=== PATIENT | female | born 1965 ===

== ENCOUNTER 2020-05-25 21:46 | Inpatient (IN) ==
[2020-05-26 01:04] LABS: ABG Base Excess 1.6 MMOL/L (-2.5-2.5); ABG HCO3 25.8 MMOL/L (20-26); ABG Oxygen Saturation 95.5 % (95-100); ABG PCO2 31.1 MM HG (35-48); ABG PH 7.498 (7.35-7.45); ABG PO2 84.2 MM HG (80-95); ABG TCO2 21.4 MMOL/L (23-27)
[2020-05-26] MEDS ORDERED: NICOTINE 21 MG/24 HR PATCH TRANSDERM PRN ×2 (01:04→11:55)
[2020-05-26] MEDS ORDERED: AZITHROMYCIN INJ 500 MG in SODIUM CHLORIDE 0.9% 250 ML IV ONE ×2 (01:07→21:00)
[2020-05-26 01:15] LABS: Albumin 2.4 G/DL (3.4-5.0); Bilirubin,Total 0.4 MG/DL (0.2-1.0); Calcium 8.6 MG/DL (8.5-10.1); Osmolality,Calculated 282.4 MOS/KG (273-304); Potassium 3.3 MMOL/L (3.5-5.1)
[2020-05-26] MEDS ORDERED: cefTRIAXone 1,000 MG in SYRINGE 1 EACH IV SCH (01:15)
[2020-05-26] MEDS ORDERED: FUROSEMIDE 40 MG/4 ML VIAL IV ONE (01:16)
[2020-05-26 01:18] LABS: Basophils % 0.2 % (0.0-0.8); Hematocrit 33.3 VOL% (35.7-47.0); Hemoglobin 11.1 GM/DL (12.0-16.0); Immature Granulocytes % 2.3 %; Immature Granulocytes Absolute 0.37 #; Lymphocytes # 0.5 10*3/uL (1.4-4.0); Lymphocytes % 2.8 % (21.3-54.2); Mean Corpuscular HGB Conc 33.3 GM/DL (32-36); Mean Corpuscular Volume 91.5 FL (87-102); Mean Platelet Volume 9.5 FL (9.6-12.0); Monocytes % 1.9 % (1.7-12.7); Neutrophils % 92.8 % (38.7-73.9); Platelet Count 346 T/CUMM (130-400); Red Blood Count 3.64 MC/CUMM (3.8-5.5); Red Cell Distribution Width 15.2 % (9.3-17.3); White Blood Count 16.3 T/CUMM (4-12)
[2020-05-26] MEDS ORDERED: POTASSIUM CHLORIDE 20 MEQ TABLET PO PRN (01:29)
[2020-05-26] MEDS ORDERED: ENOXAPARIN 40 MG/0.4 ML SYRINGE SUBCUT SCH (01:30)
[2020-05-26 01:41] LABS: Ferritin 206.2 ng/ml (8-252)
[2020-05-26 03:05] LABS: Lymphocytes 8 % (20-55); Segmented Neutrophils 90 % (50-85); Total Cells Counted 100
[2020-05-26 03:06] LABS: Platelet Estimate Decreased
[2020-05-26] MEDS: ALBUTEROL INHALER 18 GM INH SCH ×7 (03:11→23:43)
[2020-05-26 03:14] LABS: Bilirubin,Urine Negative (Negative); Blood, Urine Negative (Negative); Glucose,Urine (UA) Negative (Negative); Ketones,Urine 5 mg/dL (Negative); Mucus,Urine Occasional /LPF (Occasional); Nitrite,Urine Positive (Negative); Protein,Urine Negative; RBC,Urine 1 /HPF (0-4); Squamous Epithelial Cell,Urine Occasional /HPF (0-10); Urine Appearance CLEAR (Clear); Urine Color Yellow (Yellow); Urine Specific Gravity 1.041 (1.001-1.035); Urine Urobilinogen < 2.0 EU/DL (0.2-1.0); WBC,Urine 50 /HPF (0-6)
[2020-05-26 03:19] LABS: Free T4 (Free Thyroxine) 1.07 NG/DL (0.76-1.46)
[2020-05-26] MEDS ORDERED: IBUPROFEN 400 MG TABLET PO PRN (03:29)
[2020-05-26] MEDS: ENOXAPARIN 60 MG/0.6 ML SYRINGE SUBCUT SCH (03:40)
[2020-05-26] MEDS ORDERED: LORazepam 2 MG/1 ML VIAL IV ONE ×2 (05:20→11:50)
[2020-05-26 05:54] LABS: Basophils % 0.3 % (0.0-0.8); Hematocrit 34.1 VOL% (35.7-47.0); Hemoglobin 11.2 GM/DL (12.0-16.0); Immature Granulocytes % 1.1 %; Immature Granulocytes Absolute 0.17 #; Lymphocytes # 0.5 10*3/uL (1.4-4.0); Lymphocytes % 3.4 % (21.3-54.2); Mean Corpuscular HGB Conc 32.8 GM/DL (32-36); Mean Corpuscular Volume 92.2 FL (87-102); Mean Platelet Volume 9.3 FL (9.6-12.0); Monocytes % 3.6 % (1.7-12.7); Neutrophils % 91.6 % (38.7-73.9); Platelet Count 348 T/CUMM (130-400); Red Cell Distribution Width 15.2 % (9.3-17.3); White Blood Count 15.7 T/CUMM (4-12)
[2020-05-26 06:19] LABS: Hypochromasia 1+; Lymphocytes 10 % (20-55); Microcytosis 1+; Platelet Estimate Adequate; Segmented Neutrophils 87 % (50-85); Total Cells Counted 100
[2020-05-26 06:22] LABS: Alanine Aminotransferase 13 U/L (13-56); Albumin 2.4 G/DL (3.4-5.0); Alkaline Phosphatase 93 U/L (45-117); Aspartate Amino Transferase 21 U/L (0-37); Bilirubin,Total < 0.39 MG/DL (0.2-1.0); Blood Urea Nitrogen 16 MG/DL (7-18); Calcium 8.4 MG/DL (8.5-10.1); Carbon Dioxide 24 MMOL/L (21-32); Estimated Glom Filtration Rate 78 ML/MIN; Glucose 157 MG/DL (74-106); Potassium 3.4 MMOL/L (3.5-5.1); Sodium 143 MMOL/L (136-145); Total Protein 7.3 G/DL (6.4-8.3)
[2020-05-26] MEDS ORDERED: HALOPERIDOL 5 MG/ML AMP IM PRN ×2 (08:45→15:55)
[2020-05-26] MEDS ORDERED: DEXAMETHASONE 4 MG/1 ML VIAL IV SCH (09:00)
[2020-05-26] MEDS ORDERED: AZITHROMYCIN INJ 500 MG in SODIUM CHLORIDE 0.9% 250 ML IV SCH (09:00)
[2020-05-26 09:08] LABS: ABG Base Excess 2.6 MMOL/L (-2.5-2.5); ABG HCO3 24.3 MMOL/L (20-26); ABG Oxygen Saturation 98.3 % (95-100); ABG PCO2 28.4 MM HG (35-48); ABG PO2 139.4 MM HG (80-95); ABG TCO2 25.2 MMOL/L (23-27); Pt O2 Delivery Device Other
[2020-05-26] MEDS: DOXYCYCLINE HYCLATE INJ 100 MG in SODIUM CHLORIDE 0.9% 100 ML IV SCH ×2 (09:15→23:55)
[2020-05-26] MEDS: PANTOPRAZOLE 40 MG TABLET PO SCH (09:16)
[2020-05-26] MEDS: ASCORBIC ACID 500 MG TABLET PO SCH ×2 (09:16→21:01)
[2020-05-26] MEDS: CHOLECALCIFEROL 1,000 UNIT TABLET PO SCH (09:16)
[2020-05-26] MEDS: ZINC GLUCONATE 50 MG TABLET PO SCH (09:16)
[2020-05-26] MEDS ORDERED: MORPHINE 4 MG/1 ML VIAL IV ONE (10:35)
[2020-05-26] MEDS ORDERED: ALPRAZolam 0.25 MG TABLET PO PRN (10:35)
[2020-05-26] MEDS ORDERED: MORPHINE 4 MG/1 ML VIAL ONE (10:38)
[2020-05-26 11:52] LABS: Ferritin 196.3 ng/ml (8-252)
[2020-05-26] MEDS ORDERED: LORazepam 2 MG/1 ML VIAL ONE ×2 (11:52→15:31)
[2020-05-26] MEDS ORDERED: METHOTREXATE 2.5 MG TABLET PO SCH (12:00)
[2020-05-26] MEDS ORDERED: DEXMEDETOMIDINE 200 MCG in SODIUM CHLORIDE 0.9% 48 ML IV PRN (12:13)
[2020-05-26] MEDS: FOLIC ACID 1 MG TABLET PO SCH (12:19)
[2020-05-26] MEDS: methylPREDNISolone SOD SUC 40 MG/1 ML VIAL IV SCH ×2 (12:19→21:00)
[2020-05-26] MEDS: LEVOTHYROXINE 50 MCG TABLET PO SCH (12:19)
[2020-05-26] MEDS ORDERED: LORazepam 2 MG/1 ML VIAL IV PRN (13:00)
[2020-05-26] MEDS: ZINC OXIDE PASTE 113 GM TUBE TOP SCH ×2 (13:51→21:00)
[2020-05-26] MEDS: AZITHROMYCIN INJ 250 MG in SODIUM CHLORIDE 0.9% 250 ML IV SCH (15:09)
[2020-05-26] MEDS: GABAPENTIN 600 MG TABLET PO SCH ×2 (15:09→21:01)
[2020-05-26] MEDS ORDERED: QUEtiapine 100 MG TABLET PO ONE ×3 (16:30)
[2020-05-26] MEDS ORDERED: HALOPERIDOL 5 MG/ML AMP IM ONE (17:28)
[2020-05-26 18:22] LABS: Bilirubin,Urine Negative (Negative); Blood, Urine Negative (Negative); Glucose,Urine (UA) Negative (Negative); Hyaline Casts,Urine 2 /LPF (0-3); Ketones,Urine 5 mg/dL (Negative); Mucus,Urine Occasional /LPF (Occasional); Nitrite,Urine Negative (Negative); Protein,Urine 30 MG/DL; RBC,Urine 3 /HPF (0-4); Squamous Epithelial Cell,Urine Occasional /HPF (0-10); Urine Appearance CLEAR (Clear); Urine Color Yellow (Yellow); Urine Specific Gravity 1.036 (1.001-1.035); Urine Urobilinogen < 2.0 EU/DL (0.2-1.0); WBC,Urine 85 /HPF (0-6)
[2020-05-26] MEDS: cefTRIAXone 1,000 MG in SYRINGE 1 EACH IV SCH (21:00)
[2020-05-26] MEDS ORDERED: HALOPERIDOL 5 MG/ML AMP IV ONE (21:39)
[2020-05-26] MEDS ORDERED: diphenhydrAMINE 50 MG/1 ML VIAL ONE (21:54)
[2020-05-26] MEDS ORDERED: diphenhydrAMINE 50 MG/1 ML VIAL IV ONE (21:57)
[2020-05-26] MEDS ORDERED: LORazepam 2 MG/1 ML VIAL IM ONE (21:57)
[2020-05-26] MEDS ORDERED: ETOMIDATE 20 MG/10 ML VIAL IV ONE ×2 (22:32→22:51)
[2020-05-26] MEDS ORDERED: ROCURONIUM 100 MG/10 ML VIAL IV ONE ×2 (22:33→22:52)
[2020-05-26] MEDS ORDERED: propofoL 200 MG/20 ML VIAL IV ONE ×2 (22:45→23:01)
[2020-05-26] MEDS: MIDAZOLAM 100 MG in SODIUM CHLORIDE 0.9% 80 ML IV PRN (23:59)
[2020-05-27 00:28] LABS: Allen Test Positive; Pt O2 Delivery Device Ventilator
[2020-05-27] MEDS ORDERED: METOPROLOL TARTRATE 5 MG/5 ML VIAL IV ONE (00:28)
[2020-05-27 00:30] LABS: ABG Base Excess -3.6 MMOL/L (-2.5-2.5); ABG HCO3 25.4 MMOL/L (20-26); ABG Oxygen Saturation 98.2 % (95-100); ABG TCO2 27.5 MMOL/L (23-27)
[2020-05-27 00:32] LABS: ABG PH 7.204 (7.35-7.45)
[2020-05-27] MEDS ORDERED: SODIUM CHLORIDE 0.9% 500 ML IV ONE (01:35)
[2020-05-27] MEDS: ENOXAPARIN 60 MG/0.6 ML SYRINGE SUBCUT SCH (02:10)
[2020-05-27] MEDS: ALBUTEROL INHALER 18 GM INH SCH ×3 (02:16→17:23)
[2020-05-27 04:11] LABS: ABG Base Excess -0.2 MMOL/L (-2.5-2.5); ABG HCO3 24.2 MMOL/L (20-26); ABG Oxygen Saturation 94.8 % (95-100); ABG PO2 85.9 MM HG (80-95); ABG TCO2 22.1 MMOL/L (23-27); Allen Test Positive; Pt O2 Delivery Device Ventilator
[2020-05-27] MEDS: methylPREDNISolone SOD SUC 40 MG/1 ML VIAL IV SCH ×3 (04:16→20:19)
[2020-05-27 04:47] LABS: Basophils % 0.1 % (0.0-0.8); Hematocrit 29.5 VOL% (35.7-47.0); Hemoglobin 9.4 GM/DL (12.0-16.0); Immature Granulocytes Absolute 0.27 #; Lymphocytes # 0.8 10*3/uL (1.4-4.0); Lymphocytes % 5.4 % (21.3-54.2); Mean Corpuscular HGB Conc 31.9 GM/DL (32-36); Mean Corpuscular Volume 95.5 FL (87-102); Mean Platelet Volume 9.4 FL (9.6-12.0); Monocytes % 7.8 % (1.7-12.7); Neutrophils % 84.7 % (38.7-73.9); Platelet Count 294 T/CUMM (130-400); Red Blood Count 3.09 MC/CUMM (3.8-5.5); Red Cell Distribution Width 15.6 % (9.3-17.3); White Blood Count 13.8 T/CUMM (4-12)
[2020-05-27 04:51] LABS: Calcium 8.1 MG/DL (8.5-10.1); Osmolality,Calculated 297.3 MOS/KG (273-304); Potassium 3.9 MMOL/L (3.5-5.1)
[2020-05-27] MEDS: LEVOTHYROXINE 50 MCG TABLET PO SCH (06:04)
[2020-05-27] MEDS: PANTOPRAZOLE 40 MG TABLET PO SCH (08:29)
[2020-05-27] MEDS: FOLIC ACID 1 MG TABLET PO SCH (09:36)
[2020-05-27] MEDS: ZINC GLUCONATE 50 MG TABLET PO SCH (09:36)
[2020-05-27] MEDS: CHOLECALCIFEROL 1,000 UNIT TABLET PO SCH (09:36)
[2020-05-27] MEDS: ASCORBIC ACID 500 MG TABLET PO SCH ×2 (09:36→20:19)
[2020-05-27] MEDS: GABAPENTIN 600 MG TABLET PO SCH ×3 (09:36→20:19)
[2020-05-27] MEDS: PARoxetine 20 MG TABLET PO SCH (09:37)
[2020-05-27] MEDS ORDERED: DEXTROSE 50% 25 GM/50 ML VIAL IV PRN (09:58)
[2020-05-27] MEDS ORDERED: GLUCAGON 1 MG VIAL IM PRN (09:58)
[2020-05-27] MEDS: ZINC OXIDE PASTE 113 GM TUBE TOP SCH ×2 (10:12→20:22)
[2020-05-27] MEDS: INSULIN REGULAR 100 UNIT/ML SUBCUT SCH ×2 (12:00→18:33)
[2020-05-27] MEDS: DOXYCYCLINE HYCLATE INJ 100 MG in SODIUM CHLORIDE 0.9% 100 ML IV SCH (12:30)
[2020-05-27] MEDS ORDERED: ALBUTEROL/IPRATROPIUM 3 ML NEB RESP TX PRN (13:07)
[2020-05-27] MEDS: IBUPROFEN 100 MG/5 ML UDCUP PO PRN (14:43)
[2020-05-27] MEDS: AZITHROMYCIN INJ 250 MG in SODIUM CHLORIDE 0.9% 250 ML IV SCH (15:52)
[2020-05-27] MEDS: MIDAZOLAM 100 MG in SODIUM CHLORIDE 0.9% 80 ML IV PRN (16:49)
[2020-05-27] MEDS: QUEtiapine 100 MG TABLET PO SCH (20:18)
[2020-05-27] MEDS: cefTRIAXone 1,000 MG in SYRINGE 1 EACH IV SCH (20:21)
[2020-05-27] MEDS ORDERED: QUEtiapine 100 MG TABLET PO SCH (21:00)
[2020-05-28] MEDS: INSULIN REGULAR 100 UNIT/ML SUBCUT SCH ×6 (01:41→23:57)
[2020-05-28] MEDS: ENOXAPARIN 60 MG/0.6 ML SYRINGE SUBCUT SCH (01:42)
[2020-05-28 03:23] LABS: ABG Base Excess -1.2 MMOL/L (-2.5-2.5); ABG HCO3 23.4 MMOL/L (20-26); ABG Oxygen Saturation 94.5 % (95-100); ABG PCO2 41.6 MM HG (35-48); ABG PO2 86.6 MM HG (80-95); ABG TCO2 22.1 MMOL/L (23-27); Allen Test Positive; Pt O2 Delivery Device Ventilator
[2020-05-28] MEDS: methylPREDNISolone SOD SUC 40 MG/1 ML VIAL IV SCH ×3 (03:59→20:58)
[2020-05-28] MEDS: MIDAZOLAM 100 MG in SODIUM CHLORIDE 0.9% 80 ML IV PRN (04:13)
[2020-05-28 04:16] LABS: Basophils % 0.2 % (0.0-0.8); Eosinophils % 0.2 % (0.00-10.9); Hemoglobin 9.2 GM/DL (12.0-16.0); Immature Granulocytes % 5.3 %; Immature Granulocytes Absolute 0.47 #; Lymphocytes # 1.5 10*3/uL (1.4-4.0); Lymphocytes % 17.4 % (21.3-54.2); Mean Corpuscular HGB Conc 29.7 GM/DL (32-36); Mean Platelet Volume 9.6 FL (9.6-12.0); Monocytes % 7.2 % (1.7-12.7); NRBC # 0.02 10*3/uL; Neutrophils % 69.7 % (38.7-73.9); Platelet Count 315 T/CUMM (130-400); Red Blood Count 3.04 MC/CUMM (3.8-5.5); Red Cell Distribution Width 15.9 % (9.3-17.3); White Blood Count 8.9 T/CUMM (4-12)
[2020-05-28 04:32] LABS: Calcium 8.5 MG/DL (8.5-10.1); Osmolality,Calculated 303.4 MOS/KG (273-304); Potassium 3.5 MMOL/L (3.5-5.1)
[2020-05-28 05:44] LABS: Anisocytosis 2+; Lymphocytes 11 % (20-55); Macrocytosis 2+; Metamyelocytes 2 %; Platelet Estimate Normal; Segmented Neutrophils 82 % (50-85); Total Cells Counted 100
[2020-05-28] MEDS: LEVOTHYROXINE 50 MCG TABLET PO SCH (06:35)
[2020-05-28] MEDS ORDERED: POTASSIUM CHLORIDE 20 MEQ/15 ML UDCUP ONE ×2 (08:02)
[2020-05-28] MEDS: PARoxetine 20 MG TABLET PO SCH (08:40)
[2020-05-28] MEDS: ZINC OXIDE PASTE 113 GM TUBE TOP SCH ×2 (08:40→21:31)
[2020-05-28] MEDS: ZINC GLUCONATE 50 MG TABLET PO SCH (08:40)
[2020-05-28] MEDS: PANTOPRAZOLE 40 MG VIAL IV SCH (08:40)
[2020-05-28] MEDS: POTASSIUM CHLORIDE 20 MEQ/15 ML UDCUP PER TUBE PRN ×2 (08:40→10:55)
[2020-05-28] MEDS: GABAPENTIN 600 MG TABLET PO SCH ×3 (08:40→20:58)
[2020-05-28] MEDS: ASCORBIC ACID 500 MG TABLET PO SCH ×2 (08:40→20:58)
[2020-05-28] MEDS: FOLIC ACID 1 MG TABLET PO SCH (08:40)
[2020-05-28] MEDS: CHOLECALCIFEROL 1,000 UNIT TABLET PO SCH (08:40)
[2020-05-28] MEDS: AZITHROMYCIN INJ 250 MG in SODIUM CHLORIDE 0.9% 250 ML IV SCH (16:07)
[2020-05-28] MEDS: QUEtiapine 100 MG TABLET PO SCH (20:58)
[2020-05-28] MEDS: cefTRIAXone 1,000 MG in SYRINGE 1 EACH IV SCH (21:31)
[2020-05-29] MEDS: MIDAZOLAM 100 MG in SODIUM CHLORIDE 0.9% 80 ML IV PRN ×2 (00:47→18:08)
[2020-05-29] MEDS: ENOXAPARIN 60 MG/0.6 ML SYRINGE SUBCUT SCH (02:35)
[2020-05-29 04:26] LABS: ABG Base Excess -0.8 MMOL/L (-2.5-2.5); ABG HCO3 23.5 MMOL/L (20-26); ABG Oxygen Saturation 97.9 % (95-100); ABG PCO2 37.7 MM HG (35-48); ABG PH 7.412 (7.35-7.45); ABG PO2 127.2 MM HG (80-95); ABG TCO2 24.6 MMOL/L (23-27); Allen Test Positive; Pt O2 Delivery Device Ventilator
[2020-05-29] MEDS: methylPREDNISolone SOD SUC 40 MG/1 ML VIAL IV SCH ×3 (05:46→20:02)
[2020-05-29 05:55] LABS: Basophils % 0.3 % (0.0-0.8); Hematocrit 32.9 VOL% (35.7-47.0); Hemoglobin 10.2 GM/DL (12.0-16.0); Immature Granulocytes % 4.2 %; Immature Granulocytes Absolute 0.31 #; Lymphocytes # 0.9 10*3/uL (1.4-4.0); Mean Corpuscular Volume 97.9 FL (87-102); Mean Platelet Volume 9.5 FL (9.6-12.0); Monocytes % 4.2 % (1.7-12.7); Neutrophils % 79.3 % (38.7-73.9); Platelet Count 324 T/CUMM (130-400); Red Blood Count 3.36 MC/CUMM (3.8-5.5); Red Cell Distribution Width 15.6 % (9.3-17.3); White Blood Count 7.3 T/CUMM (4-12)
[2020-05-29] MEDS: INSULIN REGULAR 100 UNIT/ML SUBCUT SCH ×3 (06:16→17:44)
[2020-05-29] MEDS: LEVOTHYROXINE 50 MCG TABLET PO SCH (06:24)
[2020-05-29 06:28] LABS: Calcium 8.4 MG/DL (8.5-10.1); Osmolality,Calculated 296.7 MOS/KG (273-304); Potassium 4.6 MMOL/L (3.5-5.1)
[2020-05-29] MEDS: FOLIC ACID 1 MG TABLET PO SCH (08:30)
[2020-05-29] MEDS: ASCORBIC ACID 500 MG TABLET PO SCH ×2 (08:31→20:08)
[2020-05-29] MEDS: GABAPENTIN 600 MG TABLET PO SCH ×3 (08:31→20:02)
[2020-05-29] MEDS: PARoxetine 20 MG TABLET PO SCH (08:31)
[2020-05-29] MEDS: ZINC GLUCONATE 50 MG TABLET PO SCH (08:31)
[2020-05-29] MEDS: CHOLECALCIFEROL 1,000 UNIT TABLET PO SCH (08:31)
[2020-05-29] MEDS: PANTOPRAZOLE 40 MG VIAL IV SCH (08:32)
[2020-05-29] MEDS ORDERED: LIDOCAINE 2% VISCOUS 100 ML BOTTLE SWISH/SPIT ONE (09:00)
[2020-05-29] MEDS ORDERED: LIDOCAINE 1% 20 ML VIAL MISC INJ ONE (09:00)
[2020-05-29] MEDS ORDERED: LIDOCAINE 2% 20 ML VIAL RESP TX ONE (09:00)
[2020-05-29] MEDS: ZINC OXIDE PASTE 113 GM TUBE TOP SCH ×2 (10:26→20:03)
[2020-05-29] MEDS: AZITHROMYCIN INJ 250 MG in SODIUM CHLORIDE 0.9% 250 ML IV SCH (15:01)
[2020-05-29] MEDS: QUEtiapine 100 MG TABLET PO SCH (20:08)
[2020-05-29] MEDS: cefTRIAXone 1,000 MG in SYRINGE 1 EACH IV SCH (20:44)
[2020-05-30] MEDS: INSULIN REGULAR 100 UNIT/ML SUBCUT SCH ×5 (00:50→23:58)
[2020-05-30] MEDS: ENOXAPARIN 60 MG/0.6 ML SYRINGE SUBCUT SCH (02:17)
[2020-05-30 04:26] LABS: ABG Base Excess 3.2 MMOL/L (-2.5-2.5); ABG HCO3 27.2 MMOL/L (20-26); ABG Oxygen Saturation 95.7 % (95-100); ABG PCO2 39.1 MM HG (35-48); ABG PO2 86.5 MM HG (80-95); ABG TCO2 28.4 MMOL/L (23-27); Allen Test Positive; Pt O2 Delivery Device Ventilator
[2020-05-30 04:38] LABS: Basophils % 0.2 % (0.0-0.8); Eosinophils % 0.1 % (0.00-10.9); Hematocrit 33.2 VOL% (35.7-47.0); Hemoglobin 10.2 GM/DL (12.0-16.0); Immature Granulocytes % 4.8 %; Immature Granulocytes Absolute 0.54 #; Lymphocytes # 1.4 10*3/uL (1.4-4.0); Lymphocytes % 12.7 % (21.3-54.2); Mean Corpuscular HGB Conc 30.7 GM/DL (32-36); Mean Corpuscular Volume 97.6 FL (87-102); Mean Platelet Volume 9.5 FL (9.6-12.0); Monocytes % 4.9 % (1.7-12.7); Neutrophils % 77.3 % (38.7-73.9); Platelet Count 356 T/CUMM (130-400); Red Cell Distribution Width 15.4 % (9.3-17.3); White Blood Count 11.4 T/CUMM (4-12)
[2020-05-30 04:57] LABS: Hypochromasia 1+; Lymphocytes 17 % (20-55); Microcytosis 1+; Platelet Estimate Adequate; Segmented Neutrophils 79 % (50-85); Total Cells Counted 100
[2020-05-30 05:02] LABS: Calcium 8.3 MG/DL (8.5-10.1); Osmolality,Calculated 283.4 MOS/KG (273-304); Potassium 4.5 MMOL/L (3.5-5.1)
[2020-05-30] MEDS: methylPREDNISolone SOD SUC 40 MG/1 ML VIAL IV SCH ×3 (05:15→20:17)
[2020-05-30] MEDS: LEVOTHYROXINE 50 MCG TABLET PO SCH (06:33)
[2020-05-30] MEDS: CHOLECALCIFEROL 1,000 UNIT TABLET PO SCH (08:16)
[2020-05-30] MEDS: PANTOPRAZOLE 40 MG VIAL IV SCH (08:16)
[2020-05-30] MEDS: ZINC GLUCONATE 50 MG TABLET PO SCH (08:16)
[2020-05-30] MEDS: ZINC OXIDE PASTE 113 GM TUBE TOP SCH ×2 (08:17→20:18)
[2020-05-30] MEDS: PARoxetine 20 MG TABLET PO SCH (08:17)
[2020-05-30] MEDS: ASCORBIC ACID 500 MG TABLET PO SCH ×2 (08:17→20:17)
[2020-05-30] MEDS: FOLIC ACID 1 MG TABLET PO SCH (08:17)
[2020-05-30] MEDS: GABAPENTIN 600 MG TABLET PO SCH ×3 (08:17→20:17)
[2020-05-30] MEDS: MIDAZOLAM 100 MG in SODIUM CHLORIDE 0.9% 80 ML IV PRN (13:22)
[2020-05-30] MEDS: QUEtiapine 100 MG TABLET PO SCH (20:17)
[2020-05-30] MEDS: cefTRIAXone 1,000 MG in SYRINGE 1 EACH IV SCH (21:16)
[2020-05-31] MEDS: ENOXAPARIN 60 MG/0.6 ML SYRINGE SUBCUT SCH (02:30)
[2020-05-31 03:24] LABS: Basophils % 0.1 % (0.0-0.8); Hematocrit 35.4 VOL% (35.7-47.0); Hemoglobin 11.2 GM/DL (12.0-16.0); Immature Granulocytes % 5.4 %; Immature Granulocytes Absolute 0.81 #; Lymphocytes # 1.2 10*3/uL (1.4-4.0); Lymphocytes % 8.2 % (21.3-54.2); Mean Corpuscular HGB Conc 31.6 GM/DL (32-36); Mean Corpuscular Volume 95.4 FL (87-102); Mean Platelet Volume 9.7 FL (9.6-12.0); Monocytes % 4.6 % (1.7-12.7); Neutrophils % 81.7 % (38.7-73.9); Platelet Count 390 T/CUMM (130-400); Red Blood Count 3.71 MC/CUMM (3.8-5.5); Red Cell Distribution Width 15.2 % (9.3-17.3)
[2020-05-31 03:41] LABS: Calcium 8.4 MG/DL (8.5-10.1); Potassium 4.4 MMOL/L (3.5-5.1)
[2020-05-31 03:55] LABS: Lymphocytes 8 % (20-55); Platelet Estimate Normal; Segmented Neutrophils 90 % (50-85); Total Cells Counted 100
[2020-05-31 04:12] LABS: ABG Base Excess 3.2 MMOL/L (-2.5-2.5); ABG HCO3 27.3 MMOL/L (20-26); ABG Oxygen Saturation 97.8 % (95-100); ABG PCO2 39.8 MM HG (35-48); ABG PH 7.446 (7.35-7.45); ABG TCO2 24.5 MMOL/L (23-27)
[2020-05-31] MEDS: methylPREDNISolone SOD SUC 40 MG/1 ML VIAL IV SCH ×3 (04:43→21:59)
[2020-05-31] MEDS: INSULIN REGULAR 100 UNIT/ML SUBCUT SCH ×3 (06:38→18:40)
[2020-05-31] MEDS: LEVOTHYROXINE 50 MCG TABLET PO SCH (06:58)
[2020-05-31] MEDS: ASCORBIC ACID 500 MG TABLET PO SCH ×2 (08:36→22:00)
[2020-05-31] MEDS: CHOLECALCIFEROL 1,000 UNIT TABLET PO SCH (08:36)
[2020-05-31] MEDS: PANTOPRAZOLE 40 MG VIAL IV SCH (08:36)
[2020-05-31] MEDS: ZINC GLUCONATE 50 MG TABLET PO SCH (08:36)
[2020-05-31] MEDS: FOLIC ACID 1 MG TABLET PO SCH (08:37)
[2020-05-31] MEDS: ZINC OXIDE PASTE 113 GM TUBE TOP SCH ×2 (08:37→22:00)
[2020-05-31] MEDS: PARoxetine 20 MG TABLET PO SCH (08:37)
[2020-05-31] MEDS: GABAPENTIN 600 MG TABLET PO SCH ×3 (08:37→22:00)
[2020-05-31] MEDS: ALBUTEROL/IPRATROPIUM 3 ML NEB RESP TX SCH ×2 (14:00→19:25)
[2020-05-31] MEDS: QUEtiapine 100 MG TABLET PO SCH (22:00)
[2020-05-31] MEDS: cefTRIAXone 1,000 MG in SYRINGE 1 EACH IV SCH (22:00)
[2020-05-31] MEDS: MIDAZOLAM 100 MG in SODIUM CHLORIDE 0.9% 80 ML IV PRN (22:01)
[2020-06-01] MEDS: ALBUTEROL/IPRATROPIUM 3 ML NEB RESP TX SCH ×7 (00:54→23:31)
[2020-06-01] MEDS: INSULIN REGULAR 100 UNIT/ML SUBCUT SCH ×4 (00:55→19:35)
[2020-06-01] MEDS: ENOXAPARIN 60 MG/0.6 ML SYRINGE SUBCUT SCH (00:56)
[2020-06-01 03:39] LABS: ABG HCO3 28.9 MMOL/L (20-26); ABG Oxygen Saturation 98.1 % (95-100); ABG PCO2 37.1 MM HG (35-48); ABG PH 7.492 (7.35-7.45); ABG TCO2 25.6 MMOL/L (23-27); Allen Test Positive; Pt O2 Delivery Device Ventilator
[2020-06-01 04:12] LABS: Basophils # 0.1 10*3/uL (0.0-0.2); Basophils % 0.7 % (0.0-0.8); Hematocrit 34.1 VOL% (35.7-47.0); Immature Granulocytes % 6.4 %; Immature Granulocytes Absolute 1.01 #; Lymphocytes # 1.1 10*3/uL (1.4-4.0); Lymphocytes % 6.9 % (21.3-54.2); Mean Corpuscular HGB Conc 32.3 GM/DL (32-36); Mean Corpuscular Volume 94.2 FL (87-102); Mean Platelet Volume 9.9 FL (9.6-12.0); Monocytes % 4.7 % (1.7-12.7); Neutrophils % 81.3 % (38.7-73.9); Platelet Count 411 T/CUMM (130-400); Red Blood Count 3.62 MC/CUMM (3.8-5.5); White Blood Count 15.9 T/CUMM (4-12)
[2020-06-01 04:32] LABS: Calcium 8.4 MG/DL (8.5-10.1); Osmolality,Calculated 285.4 MOS/KG (273-304)
[2020-06-01 04:35] LABS: Lymphocytes 13 % (20-55); Platelet Estimate Adequate; Segmented Neutrophils 83 % (50-85); Total Cells Counted 100
[2020-06-01] MEDS: methylPREDNISolone SOD SUC 40 MG/1 ML VIAL IV SCH ×3 (05:46→20:17)
[2020-06-01] MEDS: LEVOTHYROXINE 50 MCG TABLET PO SCH (05:47)
[2020-06-01] MEDS: ASCORBIC ACID 500 MG TABLET PO SCH ×2 (08:02→20:18)
[2020-06-01] MEDS: FOLIC ACID 1 MG TABLET PO SCH (08:02)
[2020-06-01] MEDS: ZINC GLUCONATE 50 MG TABLET PO SCH (08:02)
[2020-06-01] MEDS: PARoxetine 20 MG TABLET PO SCH (08:02)
[2020-06-01] MEDS: CHOLECALCIFEROL 1,000 UNIT TABLET PO SCH (08:02)
[2020-06-01] MEDS: GABAPENTIN 600 MG TABLET PO SCH ×3 (08:02→20:18)
[2020-06-01] MEDS: ZINC OXIDE PASTE 113 GM TUBE TOP SCH ×2 (08:03→20:18)
[2020-06-01] MEDS: PANTOPRAZOLE 40 MG VIAL IV SCH (08:03)
[2020-06-01] MEDS: MICAFUNGIN 100 MG in SODIUM CHLORIDE 0.9% 100 ML IV SCH (08:40)
[2020-06-01] MEDS: QUEtiapine 100 MG TABLET PO SCH (20:17)
[2020-06-01] MEDS: IBUPROFEN 100 MG/5 ML UDCUP PO PRN (20:18)
[2020-06-01] MEDS: cefTRIAXone 1,000 MG in SYRINGE 1 EACH IV SCH (20:18)
[2020-06-02] MEDS: INSULIN REGULAR 100 UNIT/ML SUBCUT SCH ×4 (00:07→18:18)
[2020-06-02] MEDS: ENOXAPARIN 60 MG/0.6 ML SYRINGE SUBCUT SCH (02:27)
[2020-06-02] MEDS: methylPREDNISolone SOD SUC 40 MG/1 ML VIAL IV SCH ×3 (03:44→20:12)
[2020-06-02 03:58] LABS: Basophils # 0.1 10*3/uL (0.0-0.2); Basophils % 0.7 % (0.0-0.8); Eosinophils % 0.1 % (0.00-10.9); Hematocrit 35.7 VOL% (35.7-47.0); Hemoglobin 11.4 GM/DL (12.0-16.0); Immature Granulocytes % 6.4 %; Immature Granulocytes Absolute 1.01 #; Lymphocytes # 1.3 10*3/uL (1.4-4.0); Lymphocytes % 8.1 % (21.3-54.2); Mean Corpuscular HGB Conc 31.9 GM/DL (32-36); Mean Corpuscular Volume 94.9 FL (87-102); Mean Platelet Volume 9.7 FL (9.6-12.0); Monocytes % 5.1 % (1.7-12.7); Neutrophils % 79.6 % (38.7-73.9); Platelet Count 462 T/CUMM (130-400); Red Blood Count 3.76 MC/CUMM (3.8-5.5); Red Cell Distribution Width 15.3 % (9.3-17.3); White Blood Count 15.8 T/CUMM (4-12)
[2020-06-02 04:14] LABS: ABG Base Excess 4.1 MMOL/L (-2.5-2.5); ABG HCO3 28.1 MMOL/L (20-26); ABG Oxygen Saturation 96.1 % (95-100); ABG PH 7.449 (7.35-7.45); ABG PO2 91.2 MM HG (80-95); ABG TCO2 25.3 MMOL/L (23-27)
[2020-06-02 04:20] LABS: Calcium 8.7 MG/DL (8.5-10.1); Osmolality,Calculated 282.4 MOS/KG (273-304); Potassium 4.3 MMOL/L (3.5-5.1)
[2020-06-02 04:23] LABS: Albumin 2.5 G/DL (3.4-5.0); Bilirubin,Total 0.4 MG/DL (0.2-1.0); Calcium 8.7 MG/DL (8.5-10.1); Osmolality,Calculated 284.3 MOS/KG (273-304); Total Protein 6.7 G/DL (6.4-8.3)
[2020-06-02] MEDS: MORPHINE 4 MG/1 ML VIAL IV PRN ×5 (04:34→23:36)
[2020-06-02] MEDS: ALBUTEROL/IPRATROPIUM 3 ML NEB RESP TX SCH ×6 (04:57→23:12)
[2020-06-02 05:01] LABS: Band Neutrophils 1 % (0-10); Eosinophils 1 % (0-10); Lymphocytes 6 % (20-55); Myelocytes 1 %; Promyelocytes 1 %; Segmented Neutrophils 87 % (50-85); Total Cells Counted 100
[2020-06-02 05:02] LABS: Hypochromasia 1+
[2020-06-02 05:03] LABS: Microcytosis 1+; Platelet Estimate Increased
[2020-06-02] MEDS: LEVOTHYROXINE 50 MCG TABLET PO SCH (05:30)
[2020-06-02] MEDS: PANTOPRAZOLE 40 MG VIAL IV SCH (08:35)
[2020-06-02] MEDS: MICAFUNGIN 100 MG in SODIUM CHLORIDE 0.9% 100 ML IV SCH (08:35)
[2020-06-02] MEDS: ASCORBIC ACID 500 MG TABLET PO SCH ×2 (08:36→20:15)
[2020-06-02] MEDS: PARoxetine 20 MG TABLET PO SCH (08:36)
[2020-06-02] MEDS: GABAPENTIN 600 MG TABLET PO SCH ×3 (08:36→20:15)
[2020-06-02] MEDS: ZINC OXIDE PASTE 113 GM TUBE TOP SCH ×2 (08:36→20:15)
[2020-06-02] MEDS: FOLIC ACID 1 MG TABLET PO SCH (08:36)
[2020-06-02] MEDS: CHOLECALCIFEROL 1,000 UNIT TABLET PO SCH (08:36)
[2020-06-02] MEDS: ZINC GLUCONATE 50 MG TABLET PO SCH (08:44)
[2020-06-02] MEDS ORDERED: PHENOL 1.4% THROAT SPRAY 177 ML BOTTLE PO PRN (08:48)
[2020-06-02] MEDS: DESITIN 4OZ/NYSTATIN 15 GRAM MIXTURE PASTE TOP SCH ×2 (09:30→20:15)
[2020-06-02] MEDS: IBUPROFEN 100 MG/5 ML UDCUP PO PRN ×2 (11:20→16:05)
[2020-06-02] MEDS ORDERED: IBUPROFEN 800 MG TABLET PO PRN (16:08)
[2020-06-02] MEDS: cefTRIAXone 1,000 MG in SYRINGE 1 EACH IV SCH (20:14)
[2020-06-02] MEDS: QUEtiapine 100 MG TABLET PO SCH (20:15)
[2020-06-03] MEDS: ENOXAPARIN 60 MG/0.6 ML SYRINGE SUBCUT SCH (01:11)
[2020-06-03] MEDS: ALBUTEROL/IPRATROPIUM 3 ML NEB RESP TX SCH ×3 (03:00→11:21)
[2020-06-03] MEDS: methylPREDNISolone SOD SUC 40 MG/1 ML VIAL IV SCH ×2 (03:36→12:18)
[2020-06-03] MEDS: MORPHINE 4 MG/1 ML VIAL IV PRN ×3 (03:36→11:53)
[2020-06-03] MEDS: LEVOTHYROXINE 50 MCG TABLET PO SCH (05:45)
[2020-06-03] MEDS: MICAFUNGIN 100 MG in SODIUM CHLORIDE 0.9% 100 ML IV SCH (08:01)
[2020-06-03] MEDS: CHOLECALCIFEROL 1,000 UNIT TABLET PO SCH (08:02)
[2020-06-03] MEDS: ASCORBIC ACID 500 MG TABLET PO SCH (08:02)
[2020-06-03] MEDS: ZINC GLUCONATE 50 MG TABLET PO SCH (08:02)
[2020-06-03] MEDS: GABAPENTIN 600 MG TABLET PO SCH ×2 (08:02→14:52)
[2020-06-03] MEDS: PARoxetine 20 MG TABLET PO SCH (08:02)
[2020-06-03] MEDS: PANTOPRAZOLE 40 MG VIAL IV SCH (08:03)
[2020-06-03] MEDS: FOLIC ACID 1 MG TABLET PO SCH (08:03)
[2020-06-03] MEDS: ZINC OXIDE PASTE 113 GM TUBE TOP SCH (08:05)
[2020-06-03] MEDS: DESITIN 4OZ/NYSTATIN 15 GRAM MIXTURE PASTE TOP SCH (08:05)
[2020-06-03 12:57] VITALS: BP 152/84
[2020-06-04] MEDS ORDERED: predniSONE 20 MG TABLET PO SCH (09:00)
== END 2020-06-03 16:45 | disposition home or self-care (01) | DRG 207 ==
LOC: SUATTDRO 23:19 → N.2E 23:19 → N.CC 05-26 10:06
PROVIDERS: ADMIT Internal Medicine; ATTEND Internal Medicine